=== PATIENT | female | born 1960 | race Caucasian/White ===

== ENCOUNTER 2018-01-22 09:38 | Emergency (ER) | payer OTHER ==
[~2018-01-22] VITALS: Ht 180.3 cm; Wt 128.5 kg
[~2018-01-22 09:38] MED LIST: AUGMENTIN875 MG PO; BENADRYL25 MG PO; CIPRO500 MG PO; HYDROCODON-ACE1 EAC7 PO; MUCUS ER600 MG PO; TESSALON PERLE100 MG PO; TYLENOL REGULA325 MG PO; ULTRAM50 MG PO
[2018-01-22] MEDS ORDERED: NAPROSYN500 MG PO (12:37)
[2018-01-22 12:58] VITALS: BP 124/76
== END 2018-01-22 12:58 | disposition home or self-care (01) ==
LOC: EME 09:38
DX: M79.605 Pain in left leg (principal); M79.604 Pain in right leg; E11.9 Type 2 diabetes mellitus without complications; F17.200 Nicotine dependence, unspecified, uncomplicated; Z90.5 Acquired absence of kidney; Z85.528 Personal history of other malignant neoplasm of kidney; Z88.2 Allergy status to sulfonamides; Z88.8 Allergy status to other drugs, medicaments and biological substances
CPT/HCPCS: 73564; 93971; 99281; 99284